=== PATIENT | female | born 1945 | race Caucasian/White ===

== ENCOUNTER 2018-03-06 20:54 | Inpatient (IN) | payer OTHER ==
[~2018-03-06] VITALS: Ht 165.1 cm; Wt 83.0 kg
[~2018-03-06 20:54] MED LIST: CLARITIN10 MG PO; DEXILANT60 M1 PO; FERROUS SULFAT325 M2 PO; GLU500 PO; LAC PO; LEVAQUIN750 MG PO; MECLIZINE HYDRO25 M1 PO; PRILOSEC OTC20 M1 PO; PROZ20 PO; TENORMIN25 MG PO; VITAMIN C500 M4 PO
[2018-03-06 22:59] LABS: BASOPHIL % 0.3 % (0-2); PLATELET COUNT 236 x10^3mcL (130-400)
[2018-03-06 23:04] LABS: CALCIUM 9.1 mg/dL (8.5-10.1); CHLORIDE SERUM 106 mmol/L (98-107); CREATININE SERUM 0.8 mg/dL (0.6-1.0); GLUCOSE SERUM 102 mg/dL (74-106); POTASSIUM SERUM 4.1 mmol/L (3.5-5.1); SODIUM SERUM 140 mmol/L (136-145)
[2018-03-06 23:09] LABS: ALBUMIN 3.5 g/dL (3.4-5.0); ALKALINE PHOSPHATASE 64 U/L (46-116); ALT/SGPT 28 U/L (14-59); AMYLASE 32 U/L (25-115); AST/SGOT 24 U/L (15-37); BILIRUBIN TOTAL 0.71 mg/dL (0.20-1.00); LIPASE 80 IU/L (73-393); TOTAL PROTEIN, SERUM 6.8 g/dL (6.4-8.2)
[2018-03-07] MEDS ORDERED: TENORMIN25 MG (01:38)
[2018-03-07] MEDS ORDERED: BONINE25 MG (01:39)
[2018-03-07] MEDS ORDERED: IBUPROFEN400 MG (01:39)
[2018-03-07 02:28] LABS: microscopic required? NO
[2018-03-07 02:40] LABS: UA SPECIFIC GRAVITY 1.015 (1.005-1.035); urine erythrocyte NEGATIVE (NEGATIVE)
[2018-03-07 02:56] VITALS: BP 150/80; BP 174/89
[2018-03-07 03:07] LABS: CHOLESTEROL/HDL RATIO 3.6; PHOSPHOROUS 3.6 mg/dL (2.5-4.9)
[2018-03-07 03:10] LABS: T3 TOTAL 1.3 ng/mL
[2018-03-07 03:15] LABS: FREE T4 1.1 ng/dL (0.76-1.46); FREE THYROXINE INDEX 3.3 ug/dL (1.4-4.5)
[2018-03-07 05:31] VITALS: BP 136/73
[2018-03-07 17:19] VITALS: BP 161/80
[2018-03-07 20:31] VITALS: BP 143/76
[2018-03-08 06:05] VITALS: BP 155/86
[2018-03-08 06:23] LABS: CALCIUM 8.6 mg/dL (8.5-10.1); CARBON DIOXIDE 24.6 mmol/L (21-32); CHLORIDE SERUM 112 mmol/L (98-107); CREATININE SERUM 0.6 mg/dL (0.6-1.0); GLUCOSE SERUM 80 mg/dL (74-106); POTASSIUM SERUM 3.8 mmol/L (3.5-5.1); SODIUM SERUM 146 mmol/L (136-145)
[2018-03-08 06:45] LABS: BASOPHIL % 0.2 % (0-2); PLATELET COUNT 217 x10^3mcL (130-400); RED CELL DISTRIBUTION WIDTH 15.9 % (11.5-14.5)
[2018-03-08 08:46] VITALS: BP 129/69
[2018-03-08] MEDS ORDERED: ATENOLOL25 MG PO (14:41)
[2018-03-08 15:02] VITALS: BP 129/69
== END 2018-03-08 16:34 | disposition home or self-care (01) | DRG 382 ==
LOC: ED 20:54 → MU 03-07 02:01
PROVIDERS: Emergency Medicine; Family Medicine; Internal Medicine; Internal Medicine Gastroenterology
PROC: 0DB58ZX Excision of Esophagus, Via Natural or Artificial Opening Endoscopic, Diagnostic (ICD-10-PCS; principal; 2018-03-07 09:00)
PROC: 0DB68ZX Excision of Stomach, Via Natural or Artificial Opening Endoscopic, Diagnostic (ICD-10-PCS; 2018-03-07 09:00)
DX: K22.70 Barrett's esophagus without dysplasia (principal); K21.9 Gastro-esophageal reflux disease without esophagitis; K29.70 Gastritis, unspecified, without bleeding; I10 Essential (primary) hypertension; R73.03 Prediabetes; K44.9 Diaphragmatic hernia without obstruction or gangrene; M19.90 Unspecified osteoarthritis, unspecified site; Z68.30 Body mass index [BMI] 30.0-30.9, adult
CPT/HCPCS: 43235; 82962; 84439; C9113; J1200; J1610; J2250; J2310; J2405; J2765; J3010; J3490; J7030; J8597; Q0092